=== PATIENT | female | born 1980 | race African-American/Black ===

== ENCOUNTER 2016-12-19 20:25 | Emergency (ER) | payer OTHER, SELFPAY ==
[2016-12-19] MEDS ORDERED: Sodium Chloride 0.9% 1,000 ML ONE (20:59)
[2016-12-19] MEDS ORDERED: Ondansetron HCl/PF 4 MG/2 ML Vial ONE (20:59)
[2016-12-19 21:12] LABS: Bilirubin Small (Negative); Blood, Urine Moderate (Negative); Glucose, Urine (Dipstick) Negative (Negative); Leukocyte Negative (Negative); Nitrite Negative (Negative); Protein, Urine (Dipstick) 30 mg/dL (Neg-Trace); Specific Gravity, Urine 1.025 (1.005-1.030)
[2016-12-19 21:15] LABS: Chloride 101 mmol/L (98-107); Potassium 3.7 mmol/L (3.5-5.1); Sodium 141 mmol/L (136-145)
[2016-12-19 21:21] LABS: #Basophils 0.1 thou/uL (0.0-0.2); #Lymphocytes 2.1 thou/uL (1.20-3.40); #Monocytes 0.7 thou/uL (0.11-0.59); #Neutrophils 6.1 thou/uL (1.40-6.50); %Basophils 1.1 % (0.0-1.0); %Lymphocytes 22.8 % (21.0-51.0); %Monocytes 8.1 % (0.0-10.0); %Neutrophils 67.9 % (42.0-75.0); Hemoglobin 13.7 g/dL (12.0-16.0); Mean Corpuscular HGB CONC 30.6 g/dL (32.0-36.0); Mean Corpuscular Hemoglobin 24.1 pg (27.0-31.0); Mean Corpuscular Volume 78.6 fl (81.0-99.0); Mean Platelet Volume 6.9 fL (7.4-10.4); Platelet Count 416 thou/uL (130-400); RBC Distribution Width 14.3 % (11.5-14.5)
[2016-12-19 21:22] LABS: Clarity SL HAZY (Clear); Pregnancy Test - Urine (BHCG) Negative (Negative); Pregu Control Background? CLEAR/WHITE (CLR/WHITE); Pregu Control Bar Appear? YES (CONTROL BAR); Specific Gravity 1.025 (1.002-1.036)
[2016-12-19 21:24] LABS: RBC/HPF 0-3 HPF (0-3); Squamous Epithelial 0-3 HPF (0-3); WBC/HPF 0-3 HPF (0-3)
[2016-12-19 21:25] LABS: Bacteria/HPF 1+ HPF (None Seen)
[2016-12-19 21:33] LABS: ALT (SGPT) 11 U/L (8-55); AST (SGOT) 17 U/L (5-34); Albumin 4.4 g/dL (3.5-5.0); Alkaline Phosphatase 87 U/L (40-150); BUN (Urea Nitrogen) 11 mg/dL (7.0-18.7); Bilirubin, Total 0.7 mg/dL (0.2-1.2); Calc. Creatinine Clearance 0 mL/min (70-130); Carbon Dioxide 24 mmol/L (22-29); Estimated GFR-MDRD 77; Globulin 4.8 g/dL (2.4-3.5); Glucose 121 mg/dL (70-105); Protein, Total 9.2 g/dL (6.0-8.3)
[2016-12-19 21:44] LABS: Anion Gap 10 mmol/L (10-20)
[2016-12-19] MEDS ORDERED: Ibuprofen 800 MG TAB ONE (22:59)
== END 2016-12-19 23:23 | disposition home or self-care (01) ==
LOC: NAV ERS 20:25
DX: E86.0 Dehydration (principal); R80.9 Proteinuria, unspecified
CPT/HCPCS: 80053; 81003; 81015; 81025; 85025; 87077; 87086; 96361; 96374; J2405; J7050

== ENCOUNTER 2017-02-04 16:44 | Emergency (ER) | payer MEDICAID, SELFPAY ==
[2017-02-04] MEDS ORDERED: Bacitracin Zinc 1 Packet ONE (17:10)
== END 2017-02-04 17:17 | disposition home or self-care (01) ==
LOC: NAV ERS 16:44
DX: L72.3 Sebaceous cyst (principal)
CPT/HCPCS: 10060; 87070; 87077; 87186; 87205

== ENCOUNTER 2017-09-09 17:53 | Emergency (ER) | payer MEDICAID, SELFPAY ==
[2017-09-09] MEDS ORDERED: Sulfameth/Trimethoprim DS 800-160mg TAB ONE (18:22)
[2017-09-09] MEDS ORDERED: Lidocaine 1% 20 ML MDV ONE (18:22)
== END 2017-09-09 19:03 | disposition home or self-care (01) ==
LOC: NAV ERS 17:53
DX: L02.01 Cutaneous abscess of face (principal); R59.0 Localized enlarged lymph nodes
CPT/HCPCS: 10060; 87070; 87077; 87186; 87205; J2001

== ENCOUNTER 2018-08-24 16:35 | Emergency (ER) | payer MEDICAID ==
[2018-08-24 16:53] LABS: Bilirubin Small (Negative); Blood, Urine Large (Negative); Clarity Slightly Cloudy (Clear); Glucose, Urine (Dipstick) Negative (Negative); Leukocyte Negative (Negative); Nitrite Positive (Negative); Protein, Urine (Dipstick) 30 mg/dL (Neg-Trace); pH, Urine 5.5 (5.0-9.0)
[2018-08-24 16:57] LABS: Pregnancy Test - Urine (BHCG) Negative (Negative); Pregu Control Background? CLEAR/WHITE (CLR/WHITE); Pregu Control Bar Appear? YES (CONTROL BAR); Specific Gravity 1.035 (1.002-1.036); Specific Gravity, Urine 1.035 (1.002-1.036)
[2018-08-24 17:04] LABS: Bacteria/HPF 1+ HPF (None Seen)
[2018-08-24 17:12] LABS: #Basophils 0.1 thou/uL (0.0-0.2); #Lymphocytes 2.6 thou/uL (1.20-3.40); #Monocytes 0.7 thou/uL (0.11-0.59); #Neutrophils 4.4 thou/uL (1.40-6.50); %Basophils 1.8 % (0.0-1.0); %Eosinophils 0.2 % (0.0-10.0); %Lymphocytes 32.8 % (21.0-51.0); %Monocytes 8.5 % (0.0-10.0); %Neutrophils 56.7 % (42.0-75.0); Hemoglobin 12.5 g/dL (12.0-16.0); Mean Corpuscular HGB CONC 29.6 g/dL (32.0-36.0); Mean Corpuscular Hemoglobin 22.9 pg (27.0-31.0); Mean Corpuscular Volume 77.2 fL (78.0-98.0); Mean Platelet Volume 7.3 fL (7.4-10.4); Platelet Count 360 thou/uL (130-400); RBC Distribution Width 14.9 % (11.5-14.5); Red Blood Cell (RBC) Count 5.45 mill/uL (4.20-5.40); White Blood Cell (WBC) Count 7.8 thou/uL (4.8-10.8)
[2018-08-24] MEDS ORDERED: Nitrofurantoin Macrocrystal 50 MG CAP ONE (17:16)
[2018-08-24] MEDS ORDERED: Ondansetron ODT 4 MG TAB ONE (17:16)
[2018-08-24 17:21] LABS: Anion Gap 20 mmol/L (10-20); BUN (Urea Nitrogen) 11 mg/dL (7.0-18.7); Calc. Creatinine Clearance 0 mL/min (70-130); Calcium 10.1 mg/dL (7.8-10.44); Carbon Dioxide 18 mmol/L (22-29); Chloride 102 mmol/L (98-107); Estimated GFR-MDRD Greater than 90; Glucose 93 mg/dL (70-105); Potassium 3.6 mmol/L (3.5-5.1); Sodium 136 mmol/L (136-145)
== END 2018-08-24 17:35 | disposition home or self-care (01) ==
LOC: NAV ERS 16:35
DX: E86.0 Dehydration (principal); N39.0 Urinary tract infection, site not specified
CPT/HCPCS: 80048; 81003; 81015; 81025; 85025; 87086; 99284; Q0162

== ENCOUNTER 2018-12-26 10:06 | Emergency (ER) | payer MEDICAID, SELFPAY ==
[2018-12-26] MEDS ORDERED: Ondansetron ODT 4 MG TAB ONE (10:26)
== END 2018-12-26 10:32 | disposition home or self-care (01) ==
LOC: NAV ERS 10:06
DX: R11.2 Nausea with vomiting, unspecified (principal)
CPT/HCPCS: 99283; Q0162

== ENCOUNTER 2019-09-22 18:58 | Emergency (ER) | payer OTHER, SELFPAY ==
[2019-09-22] MEDS ORDERED: Ondansetron PF 4 MG/2 ML Vial ONE (19:26)
[2019-09-22] MEDS ORDERED: Sodium Chloride 0.9% 1,000 ML ONE (19:26)
[2019-09-22 20:06] LABS: #Basophils 0.1 thou/uL (0.0-0.2); #Lymphocytes 1.4 thou/uL (1.20-3.40); #Monocytes 0.6 thou/uL (0.11-0.59); %Basophils 0.8 % (0.0-1.0); %Eosinophils 0.1 % (0.0-10.0); %Lymphocytes 20.5 % (21.0-51.0); %Neutrophils 70.5 % (42.0-75.0); Hemoglobin 11.4 g/dL (12.0-16.0); Mean Corpuscular HGB CONC 28.3 g/dL (32.0-36.0); Mean Corpuscular Hemoglobin 22.5 pg (27.0-31.0); Mean Corpuscular Volume 79.7 fL (78.0-98.0); Mean Platelet Volume 7.3 fL (7.4-10.4); Platelet Count 342 thou/uL (130-400); RBC Distribution Width 15.7 % (11.5-14.5); Red Blood Cell (RBC) Count 5.04 mill/uL (4.20-5.40)
[2019-09-22 20:09] LABS: BHCG - Serum Negative (NEGATIVE); Pregs Control Bar Appear? YES (CONTROL BAR)
[2019-09-22 20:19] LABS: ALT (SGPT) 8 U/L (8-55); AST (SGOT) 11 U/L (5-34); Albumin 4.1 g/dL (3.5-5.0); Alkaline Phosphatase 60 U/L (40-110); Anion Gap 17 mmol/L (10-20); BUN (Urea Nitrogen) 11 mg/dL (7.0-18.7); Bilirubin, Total 0.7 mg/dL (0.2-1.2); Calc. Creatinine Clearance 0 mL/min (70-130); Calcium 9.5 mg/dL (7.8-10.44); Carbon Dioxide 22 mmol/L (22-29); Chloride 102 mmol/L (98-107); Estimated GFR-MDRD Greater than 90; Globulin 4.5 g/dL (2.4-3.5); Glucose 85 mg/dL (70-105); Lipase 23 U/L (8-78); Potassium 3.5 mmol/L (3.5-5.1); Protein, Total 8.6 g/dL (6.0-8.3); Sodium 137 mmol/L (136-145)
[2019-09-22 20:27] LABS: Bilirubin Small (Negative); Blood, Urine Moderate (Negative); Glucose, Urine (Dipstick) Negative (Negative); Ketone, Urine > or equal to 80 mg/dL (Negative); Leukocyte Negative (Negative); Nitrite Negative (Negative); Protein, Urine (Dipstick) 30 mg/dL (Neg-Trace)
[2019-09-22 20:32] LABS: Clarity SL HAZY (Clear)
[2019-09-22 20:35] LABS: Bacteria/HPF Rare-Few HPF (None Seen); Specific Gravity, Urine 1.037 (1.002-1.036); WBC/HPF 0-3 HPF (0-3)
== END 2019-09-22 20:57 | disposition home or self-care (01) ==
LOC: NAV ERS 18:58
DX: R11.2 Nausea with vomiting, unspecified (principal); R10.9 Unspecified abdominal pain
CPT/HCPCS: 80053; 81003; 81015; 83690; 84703; 85025; 96361; 96374; J2405; J7050

== ENCOUNTER 2020-01-15 08:46 | Emergency (ER) | payer OTHER, SELFPAY ==
[2020-01-15] MEDS ORDERED: Pantoprazole 40 MG VIAL ONE (09:34)
[2020-01-15] MEDS ORDERED: Ondansetron PF 4 MG/2 ML Vial ONE (09:34)
[2020-01-15] MEDS ORDERED: Sodium Chloride 0.9% 1,000 ML ONE (09:34)
[2020-01-15 09:46] LABS: Bacteria/HPF Rare-Few HPF (None Seen); Bilirubin Moderate (Negative); Blood, Urine Large (Negative); Clarity Clear (Clear); Glucose, Urine (Dipstick) Negative (Negative); Ketone, Urine 15 mg/dL (Negative); Leukocyte Negative (Negative); Mucous/LPF 1+ LPF (<2+); Nitrite Negative (Negative); Protein, Urine (Dipstick) 100 mg/dL (Neg-Trace); Specific Gravity, Urine Greater/Equal 1.030 (1.005-1.030); WBC/HPF 0-3 HPF (0-3)
[2020-01-15 09:50] LABS: Hemoglobin 12.6 g/dL (12.0-16.0); Mean Corpuscular HGB CONC 30.2 g/dL (32.0-36.0); Mean Corpuscular Hemoglobin 23.6 pg (27.0-31.0); Mean Platelet Volume 6.8 fL (7.4-10.4); Platelet Count 395 thou/uL (130-400); Red Blood Cell (RBC) Count 5.36 mill/uL (4.20-5.40); White Blood Cell (WBC) Count 8.3 thou/uL (4.8-10.8)
[2020-01-15 10:00] LABS: ALT (SGPT) 8 U/L (8-55); AST (SGOT) 12 U/L (5-34); Albumin 4.4 g/dL (3.5-5.0); Alkaline Phosphatase 64 U/L (40-110); Anion Gap 19 mmol/L (10-20); BUN (Urea Nitrogen) 16 mg/dL (7.0-18.7); Bilirubin, Total 0.8 mg/dL (0.2-1.2); Calc. Creatinine Clearance 0 mL/min (70-130); Calcium 10.2 mg/dL (7.8-10.44); Carbon Dioxide 23 mmol/L (22-29); Chloride 100 mmol/L (98-107); Estimated GFR-MDRD 78; Globulin 5.3 g/dL (2.4-3.5); Glucose 101 mg/dL (70-105); Lipase 25 U/L (8-78); Potassium 3.5 mmol/L (3.5-5.1); Protein, Total 9.7 g/dL (6.0-8.3); Sodium 138 mmol/L (136-145)
[2020-01-15 10:13] LABS: Pregnancy Test - Urine (BHCG) Negative (Negative); Pregu Control Background? CLEAR/WHITE (CLR/WHITE); Pregu Control Bar Appear? YES (CONTROL BAR); Specific Gravity 1.037 (1.002-1.036)
[2020-01-15 10:33] LABS: Anisocytosis SLIGHT = 6-15 cells (100X) (0-5/hpf); Band 2 % (5-11); Eosinophils 3 % (0-10); Lymphocytes 27 % (21-51); MDiff Complete? YES; Monocytes 4 % (0-10); Neutrophil 64 % (42-75); Platelet Morphology Comment Appears Adequate
== END 2020-01-15 10:20 | disposition home or self-care (01) ==
LOC: NAV ERS 08:46
DX: R11.2 Nausea with vomiting, unspecified (principal)
CPT/HCPCS: 80053; 81003; 81015; 81025; 83690; 85025; 96374; 96375; C9113; J2405; J7050

== ENCOUNTER 2020-03-15 14:29 | Emergency (ER) | payer SELFPAY ==
[2020-03-15] MEDS ORDERED: Ondansetron ODT 4 MG TAB ONE (15:31)
== END 2020-03-15 15:40 | disposition home or self-care (01) ==
LOC: NAV ERS 14:29
DX: R11.2 Nausea with vomiting, unspecified (principal)
CPT/HCPCS: 99283; Q0162

== ENCOUNTER 2022-05-01 07:09 | Emergency (ER) | payer SELFPAY ==
[2022-05-01 07:54] LABS: Bilirubin Negative (Negative); Blood, Urine Small (Negative); Clarity Clear (Clear); Glucose, Urine (Dipstick) Negative (Negative); Ketone, Urine Negative (Negative); Leukocyte Negative (Negative); Nitrite Negative (Negative); Protein, Urine (Dipstick) Negative (Neg-Trace); Specific Gravity, Urine 1.025 (1.005-1.030); Urobilinogen 0.2 mg/dL (Less than 2)
[2022-05-01 07:57] LABS: Bacteria/HPF None Seen HPF (None Seen); Squamous Epithelial 0-3 HPF (0-3); WBC/HPF None Seen HPF (0-3)
[2022-05-01 07:58] LABS: Pregnancy Test - Urine (BHCG) POSITIVE (Negative)
[2022-05-01 07:59] LABS: Pregu Control Background? CLEAR/WHITE (CLR/WHITE); Pregu Control Bar Appear? YES (CONTROL BAR); Specific Gravity 1.025 (1.002-1.036)
[2022-05-01] MEDS ORDERED: Sodium Chloride 0.9% 1,000 ML ONE (09:59)
[2022-05-01 10:41] LABS: Anion Gap 16 mmol/L (10-20); BUN (Urea Nitrogen) 6 mg/dL (7.0-18.7); Calc. Creatinine Clearance 0 mL/min (70-130); Calcium 9.2 mg/dL (7.8-10.44); Carbon Dioxide 19 mmol/L (22-29); Chloride 105 mmol/L (98-107); Estimated GFR 105; Glucose 111 mg/dL (70-105); Potassium 4.5 mmol/L (3.5-5.1); Sodium 135 mmol/L (136-145)
[2022-05-01 10:45] LABS: #Basophils 0.1 thou/uL (0.0-0.2); #Eosinphils 0.1 thou/uL (0.0-0.7); #Monocytes 0.5 thou/uL (0.11-0.59); #Neutrophils 3.8 thou/uL (1.40-6.50); %Basophils 1.2 % (0.0-1.0); %Eosinophils 1.1 % (0.0-10.0); %Lymphocytes 30.5 % (21.0-51.0); %Monocytes 7.6 % (0.0-10.0); %Neutrophils 59.6 % (42.0-75.0); Hemoglobin 8.7 g/dL (12.0-16.0); Mean Corpuscular Hemoglobin 18.7 pg (27.0-31.0); Mean Corpuscular Volume 64.5 fl (78.0-98.0); Mean Platelet Volume 6.8 fL (7.4-10.4); Platelet Count 445 10x3/uL (130-400); RBC Distribution Width 17.6 % (11.5-14.5); Red Blood Cell (RBC) Count 4.63 mill/uL (4.20-5.40); White Blood Cell (WBC) Count 6.4 10x3/uL (4.8-10.8)
== END 2022-05-01 11:31 | disposition short-term general hospital (02) ==
LOC: NAV ERS 07:09
DX: O99.891 Other specified diseases and conditions complicating pregnancy (principal); R10.30 Lower abdominal pain, unspecified; O99.011 Anemia complicating pregnancy, first trimester; O99.611 Diseases of the digestive system complicating pregnancy, first trimester; K21.9 Gastro-esophageal reflux disease without esophagitis; Z3A.00 Weeks of gestation of pregnancy not specified; Z79.899 Other long term (current) drug therapy
CPT/HCPCS: 80048; 81003; 81015; 81025; 84702; 85025; 86850; 86900; 86901; 99284; J7050

== ENCOUNTER 2023-09-02 09:58 | Emergency (ER) | payer OTHER | END 2023-09-02 12:00 | disposition home or self-care (01) | LOC: NAV ERS 09:58 | DX: K59.00 Constipation, unspecified (principal); R11.0 Nausea | CPT/HCPCS: 99283 ==

== ENCOUNTER 2025-03-02 13:40 | Emergency (ER) | payer OTHER, SELFPAY ==
[2025-03-02 14:11] LABS: Specific Gravity, Urine 1.015 (1.005-1.030)
[2025-03-02 14:18] LABS: Leukocyte Unable to Interpret (Negative); Protein, Urine (Dipstick) Unable to Interpret mg/dL (Neg-Trace)
[2025-03-02 14:19] LABS: Glucose, Urine (Dipstick) Unable to Interpret mg/dL (Negative)
[2025-03-02 14:28] LABS: Bacteria/HPF 3+ HPF (None Seen); CAUTI Indications for Culture Dysuria,urgency,freq; WBC/HPF Greater than 50 HPF (0-3)
[2025-03-02 14:29] LABS: Urine Culture Reflex Yes Yes
[2025-03-02] MEDS ORDERED: Sulfameth/Trimethoprim DS 800-160mg TAB ONE (15:13)
== END 2025-03-02 15:19 | disposition home or self-care (01) ==
LOC: NAV ERS 13:40
DX: N39.0 Urinary tract infection, site not specified (principal)
CPT/HCPCS: 81001; 87086; 99283